=== PATIENT | male | born 1965 | race American Indian/Alaskan Native ===

== ENCOUNTER 2017-06-15 08:53 | Outpatient (CLI) | payer OTHER ==
--- NOTE | 2017-06-15 10:29 | XRay Report ---
RIGHT SHOULDER: Shoulder pain. Routine views demonstrate normal bony and soft tissue structures with normal joint alignment of the shoulder. IMPRESSION: Normal study.
== END 2017-06-15 08:54 | disposition home or self-care (01) ==
LOC: SPVIMAG 08:53
PROVIDERS: ATTEND Orthopaedic Surgery
DX: M25.511 Pain in right shoulder (principal)